=== PATIENT | male | born 1980 | race African-American/Black ===

== ENCOUNTER 2017-08-21 22:08 | Inpatient (IN) | payer MEDICAID ==
[~2017-08-21] VITALS: Ht 170.2 cm; Wt 72.6 kg
[2017-08-21 22:20] VITALS: BP 152/102
--- NOTE | 2017-08-21 22:22 | Emergency Room Report ---
History of Present Illness General Chief Complaint: Gastrointestinal Bleed Source: Patient, EMS Present Illness HPI 40YOM BIBEMS with abd pain, vomiting blood yesterday Recent ETOH binge EMS states non-compliant, not providing a lot of history Denies previous abd surgery, diarrhea Generalized abd pain HPI otherwise limited Allergies: Coded Allergies: No Known Allergies (Unverified , 08/21/17) Patient History Past Medical History: none Past Surgical History: none Pertinent Family History: none Social History: Reports: alcohol use Immunizations: UTD Reviewed Nursing Documentation: PMH: Agreed, PSxH: Agreed Nursing Documentation-PMH Past Medical History: No Stated History Review of Systems All Other Systems: negative except mentioned in HPI Physical Exam Vital Signs Date Time Temp Pulse Resp B/P (MAP) Pulse Ox O2 Delivery O2 Flow Rate FiO2 08/21/17 22:04 98.3 86 18 159/111 98 Room Air 98.2 Sp02 EP Interpretation: reviewed, normal General Appearance: normal inspection, well appearing, no apparent distress, alert, GCS 15, non-toxic, other - dried blood around mouth; +AOB Head: normocephalic, atraumatic Eyes: bilateral eye PERRL, bilateral eye EOMI ENT: normal ENT inspection, hearing grossly normal, normal pharynx, no angioedema, normal voice, TMs + canals normal, uvula midline, moist mucus membranes Neck: normal inspection, full range of motion, supple, thyroid normal, no meningismus, no bony tend Respiratory: normal inspection, lungs clear, normal breath sounds, no rhonchi, no respiratory distress, no retraction, no accessory muscle use, no wheezing, speaking full sentences Cardiovascular #1: regular rate, rhythm, no edema, no JVD, normal capillary refill Gastrointestinal: normal inspection, normal bowel sounds, non tender, soft, no mass, no peritonitis, non-distended, no guarding, no hernia, no pulsatile mass Genitourinary: no CVA tenderness Musculoskeletal: normal inspection, back normal, normal range of motion, no calf tenderness, pelvis stable, Sarah's Sign negative Neurologic: normal inspection, alert, oriented x3, responsive, 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, motor strength/tone normal, cerebellar normal, normal gait, speech normal Psychiatric: normal inspection, judgement/insight normal, mood/affect normal, no suicidal/homicidal ideation, no delusions Skin: normal inspection, normal color, no rash Lymphatic: normal inspection, no adenopathy Medical Decision Making Diagnostic Impression: Primary Impression: Abdominal pain Qualified Codes: R10.84 - Generalized abdominal pain Additional Impressions: Hematemesis Qualified Codes: K92.0 - Hematemesis ETOH abuse ER Course 37YOM with stomach pain, likely gastritis from ETOH abuse Alleged hematemesis No active hematemesis here VSS, afebrile H&H stable INR normal No other significant metabolic abnormalities Was given protonix in ED Will likely need endoscopy Panel admit Dr Bates for Dr Bennett tele bed, 1254am EKG Diagnostic Results Rate: normal Rhythm: NSR ST Segments: no acute changes ASA given to the pt in ED: No Rhythm Strip Diag. Results EP Interpretation: yes Rate: 75 Rhythm: NSR, no PVC's, no ectopy Last Vital Signs Date Time Temp Pulse Resp B/P (MAP) Pulse Ox O2 Delivery O2 Flow Rate FiO2 08/21/17 22:04 98.3 86 18 159/111 98 Room Air 98.2 Status: improved Disposition: ADMITTED INPATIENT Condition: Serious BRITTANI JACKSON M.D. Aug 21, 2017 22:22
[2017-08-21] MEDS ORDERED: Pantoprazole Inj IVP ONE (22:30)
[2017-08-21 23:20] VITALS: BP 145/90
[2017-08-21 23:29] LABS: BASOPHILS % (AUTO) 1.8 % (0.0-2.0); EOSINOPHILS % (AUTO) 0.4 % (0.0-3.0); HEMATOCRIT 35.5 % (42.0-52.0); HEMOGLOBIN 11.2 G/DL (14.2-18.0); LYMPHOCYTES % (AUTO) 47.5 % (20.0-45.0); MEAN CORPUSCULAR VOLUME 77 FL (80-99); MONOCYTES % (AUTO) 10.2 % (1.0-10.0); NEUTROPHILS % (AUTO) 40.1 % (45.0-75.0); PLATELET COUNT 180 K/UL (150-450); RED BLOOD COUNT 4.61 M/UL (4.70-6.10); WHITE BLOOD COUNT 4.9 K/UL (4.8-10.8)
[2017-08-21 23:47] LABS: ANION GAP 13 mmol/L (5-15); BLOOD UREA NITROGEN 4 mg/dL (7-18); CALCIUM 8.7 MG/DL (8.5-10.1); CARBON DIOXIDE 26 MMOL/L (21-32); CHLORIDE 93 MMOL/L (98-107); CREATININE 0.6 MG/DL (0.55-1.30); POTASSIUM 3.4 MMOL/L (3.5-5.1); SODIUM 132 MMOL/L (136-145)
[2017-08-21 23:51] LABS: ALANINE AMINOTRANSFERASE 48 U/L (12-78); ALBUMIN 3.6 G/DL (3.4-5.0); ALBUMIN/GLOBULIN RATIO 0.8 (1.0-2.7); ALKALINE PHOSPHATASE 124 U/L (46-116); ASPARTATE AMINO TRANSFERASE 95 U/L (15-37); BILIRUBIN,TOTAL 0.6 MG/DL (0.2-1.0)
[2017-08-22] VITALS (13 sets, daily range): BP systolic 134–153; BP diastolic 68–90
[2017-08-22 02:59] LABS: APPEARANCE,URINE CLEAR; BILIRUBIN, URINE NEGATIVE (NEGATIVE); COLOR,URINE PALE YELLOW; GLUCOSE, URINE (UA) NEGATIVE (NEGATIVE); KETONES,URINE NEGATIVE (NEGATIVE); LEUKOCYTE ESTERASE ,URINE NEGATIVE (NEGATIVE); NITRITE,URINE NEGATIVE (NEGATIVE); PH,URINE 6.5 (4.5-8.0); PROTEIN,URINE NEGATIVE (NEGATIVE); UROBILINOGEN,URINE NORMAL MG/DL (0.0-1.0)
[2017-08-22] MEDS ORDERED: Pantoprazole 80 MG in NS 250 ML IV SCH (05:15)
[2017-08-22] MEDS ORDERED: Miralax 17gm pkt ORAL PRN (05:15)
[2017-08-22] MEDS ORDERED: Acetaminophen 650 MG SUPP RECTAL PRN ×2 (05:15)
[2017-08-22] MEDS ORDERED: Zolpidem 5mg tab ORAL PRN (05:15)
[2017-08-22] MEDS ORDERED: LORazepam 1mg tab ORAL PRN (05:15)
[2017-08-22] MEDS ORDERED: Pantoprazole Inj ONE (06:16)
[2017-08-22] MEDS ORDERED: Pantoprazole Inj IVP SCH (09:00)
--- NOTE | 2017-08-22 09:52 | GI Initial Consult Note ---
History of Present Illness General Date patient seen: Aug 22, 2017 Time patient seen: 09:48 Reason for Hospitalization: Gastrointestinal Bleed Referring physician: RAHAT Reason for Consultation: UGIB Present Illness HPI 37YOM BIBEMS with abd pain, vomiting blood yesterday Recent ETOH binge EMS states non-compliant, not providing a lot of history Denies previous abd surgery, diarrhea Generalized abd pain HPI otherwise limited GI consulted for UGIB. Pt seen on tele, awake A&Ox4 NAD with no active s/sx of N/V/D. Per patient report, he has history of ETOH abuse approximately 3 bottles of wine daily. In addition, is a tobacco user with occasional drug use. Stated his abuse is due to stress. Had similar episode last year with endoscopy, but cannot recall the findings. Presents today with hematemesis and macrocytic hyperchromic anemia. No known history of colonoscopy. Home Meds Unable to Obtain Active Prescriptions or Reported Meds Med list reviewed/reconciled: Yes Allergies: Coded Allergies: No Known Allergies (Unverified , 08/21/17) Patient History History Provided By: Patient, Medical Record PMH Narrative Past Medical History: none Past Surgical History: none Pertinent Family History: none Social History: Reports: alcohol use Immunizations: UTD Reviewed Nursing Documentation: PMH: Agreed, PSxH: Agreed Nursing Documentation-PMH Past Medical History: No Stated History Social History: Reports: smoking, alcohol use - etoh abuse, drug use Review of Systems All Other Systems: negative except mentioned in HPI Physical Exam Vital Signs Date Time Temp Pulse Resp B/P (MAP) Pulse Ox O2 Delivery O2 Flow Rate FiO2 08/21/17 22:04 98.3 86 18 159/111 98 Room Air 98.2 Sp02 EP Interpretation: reviewed, normal Labs Laboratory Tests Test 08/21/17 22:45 08/22/17 01:20 White Blood Count 4.9 K/UL (4.8-10.8) Red Blood Count 4.61 M/UL (4.70-6.10) L Hemoglobin 11.2 G/DL (14.2-18.0) L Hematocrit 35.5 % (42.0-52.0) L Mean Corpuscular Volume 77 FL (80-99) L Mean Corpuscular Hemoglobin 24.3 PG (27.0-31.0) L Mean Corpuscular Hemoglobin Concent 31.6 G/DL (32.0-36.0) L Red Cell Distribution Width 18.0 % (11.6-14.8) H Platelet Count 180 K/UL (150-450) Mean Platelet Volume 7.5 FL (6.5-10.1) Neutrophils (%) (Auto) 40.1 % (45.0-75.0) L Lymphocytes (%) (Auto) 47.5 % (20.0-45.0) H Monocytes (%) (Auto) 10.2 % (1.0-10.0) H Eosinophils (%) (Auto) 0.4 % (0.0-3.0) Basophils (%) (Auto) 1.8 % (0.0-2.0) Prothrombin Time 10.3 SEC (9.30-11.50) Prothromb Time International Ratio 1.0 (0.9-1.1) Sodium Level 132 MMOL/L (136-145) L Potassium Level 3.4 MMOL/L (3.5-5.1) L Chloride Level 93 MMOL/L (98-107) L Carbon Dioxide Level 26 MMOL/L (21-32) Anion Gap 13 mmol/L (5-15) Blood Urea Nitrogen 4 mg/dL (7-18) L Creatinine 0.6 MG/DL (0.55-1.30) Estimat Glomerular Filtration Rate > 60 mL/min (>60) Glucose Level 108 MG/DL (74-106) H Calcium Level 8.7 MG/DL (8.5-10.1) Total Bilirubin 0.6 MG/DL (0.2-1.0) Aspartate Amino Transf (AST/SGOT) 95 U/L (15-37) H Alanine Aminotransferase (ALT/SGPT) 48 U/L (12-78) Alkaline Phosphatase 124 U/L (46-116) H Total Protein 7.9 G/DL (6.4-8.2) Albumin 3.6 G/DL (3.4-5.0) Globulin 4.3 g/dL Albumin/Globulin Ratio 0.8 (1.0-2.7) L Lipase 132 U/L (73-393) Urine Color Pale yellow Urine Appearance Clear Urine pH 6.5 (4.5-8.0) Urine Specific [place] 1.005 (1.005-1.035) Urine Protein Negative (NEGATIVE) Urine Glucose (UA) Negative (NEGATIVE) Urine Ketones Negative (NEGATIVE) Urine Occult Blood Negative (NEGATIVE) Urine Nitrite Negative (NEGATIVE) Urine Bilirubin Negative (NEGATIVE) Urine Urobilinogen Normal MG/DL (0.0-1.0) Urine Leukocyte Esterase Negative (NEGATIVE) General Appearance: well appearing, no apparent distress, alert Head: normocephalic EENT: PERRL/EOMI, normal ENT inspection Neck: supple Respiratory: normal breath sounds, no respiratory distress Cardiovascular: normal rate Gastrointestinal: normal inspection, non tender, soft, normal bowel sounds, non -distended Rectal: deferred Genitourinary: deferred Musculoskeletal: normal inspection, back normal Neurologic: normal inspection, alert, oriented x3, responsive Psychiatric: normal inspection, judgement/insight normal, memory normal Skin: normal inspection, normal color, no rash, warm/dry, palpation normal, well hydrated Lymphatic: normal inspection, no adenopathy Current Medications Current Medications Medications (Trade) Dose Ordered Sig/Edgar Route PRN Reason Start Time Stop Time Status Last Admin Dose Admin Acetaminophen (Tylenol) 650 mg Q4H PRN ORAL Mild Pain (Pain Scale 1-3) 08/22/17 05:15 09/21/17 05:14 Acetaminophen (Tylenol) 650 mg Q4H PRN ORAL fever 08/22/17 05:15 09/21/17 05:14 Acetaminophen (Tylenol) 650 mg Q4H PRN RECTAL Mild Pain (Pain Scale 1-3) 08/22/17 05:15 09/21/17 05:14 Acetaminophen (Tylenol) 650 mg Q4H PRN RECTAL fever 08/22/17 05:15 09/21/17 05:14 Bisacodyl (Dulcolax) 10 mg DAILYPRN PRN RECTAL Constipation 08/22/17 05:15 09/21/17 05:14 Dextrose (Dextrose 50%) STAT PRN IV Hypoglycemia 08/22/17 05:15 09/21/17 05:14 Diphenhydramine HCl (Benadryl) 25 mg Q6H PRN ORAL Itching/Pruritis 08/22/17 05:15 09/21/17 05:14 Folic Acid 1 mg/ Magnesium Sulfate 2000 mg/ Multivitamins 10 ml/Sodium Chloride 1,014.2 ml @ 125 mls/ hr Q24H IV 08/22/17 10:00 09/21/17 09:59 Lorazepam (Ativan) 1 mg Q4H PRN ORAL For Anxiety 08/22/17 05:15 08/29/17 05:14 Magnesium Sulfate 2000 mg/Folic Acid 1 mg/Sodium Chloride 1,004.2 ml @ 125 mls/ hr Q24HRS IV 08/22/17 18:00 09/21/17 17:59 Ondansetron HCl (Zofran) 4 mg Q6H PRN IVP Nausea & Vomiting 08/22/17 05:15 09/21/17 05:14 08/22/17 07:48 Pantoprazole (Protonix) 40 mg EVERY 12 HOURS IVP 08/22/17 09:00 09/21/17 08:59 Polyethylene Glycol (Miralax) 17 gm DAILYPRN PRN ORAL Constipation 08/22/17 05:15 09/21/17 05:14 Thiamine HCl 100 mg/Sodium Chloride 56 ml @ 100 mls/hr DAILY IVPB 08/22/17 10:00 09/21/17 09:59 Zolpidem Tartrate (Ambien) 5 mg DAILYPRN PRN ORAL Insomnia 08/22/17 05:15 08/29/17 05:14 GI: Plan Problems: (1) Abdominal pain (2) ETOH abuse (3) Upper GI bleed (4) Hematemesis Plan EGD scheduled for today. - maintain NPO + IVFs - ppi gtt anemia work up monitor H&H, prn transfusions bowel regime ppi fu labs, B12/folate Discussed with Dr. Cross. Thank you for this patient referral, we will follow. Eliz Rose N.P. Aug 22, 2017 09:52
--- NOTE | 2017-08-22 09:52 | Pre-Procedure Note/Attestation ---
Pre-Procedure Note/Attestation Complete Prior to Procedure Planned Procedure: not applicable Procedure Narrative: egd Indications for Procedure Pre-Operative Diagnosis: gib Attestation I attest that I discussed the nature of the procedure; its benefits; risks and complications; and alternatives (and the risks and benefits of such alternatives ), prior to the procedure, with the patient (or the patient's legal underwriting service representative). I attest that, if there was a reasonable possibility of needing a blood transfusion, the patient (or the patient's legal underwriting service representative) was given the [facility] standardized written summary, pursuant to the Seng Radha Blood Safety Act ([place] Health and Safety Code # 1645, as amended). I attest that I re-evaluated the patient just prior to the surgery and that there has been no change in the patient's H&P, except as documented below: BETH CRUZ Aug 22, 2017 09:52
[2017-08-22] MEDS: Thiamine HCl 100 MG in NS 55 ML IVPB SCH (09:58)
[2017-08-22] MEDS ORDERED: Folic Acid 1 MG, Magnesium Sulfate 2,000 MG, Multivitamin - 12 Injection 10 ML in NS w/... IV SCH (10:00)
--- NOTE | 2017-08-22 10:24 | History and Physical ---
History of Present Illness General Date patient seen: Aug 22, 2017 Time patient seen: 10:24 Reason for Hospitalization: acute upper GI bleed Present Illness HPI 37y/o male with pmh of alcohol abuse who presents with abd pain and hematemesis. Pt with recent alcohol binge episode. Pt non-compliant, poor historian. C/o generalized abd pain, 9/10. C/o nausea with blood emesis. Denies f/c, chest pain, SOB, d/c. Pt states he drinks abt 3 bottles of wine. Had similar episode last year with endoscopy, but cannot recall the findings. In ED, pt given PPI. No active bleeding noted. Allergies: Coded Allergies: No Known Allergies (Unverified , 08/21/17) Medication History Scheduled Folic Acid* (Folic Acid*), 1 MG ORAL DAILY Multivitamin With Minerals (Multivitamins With Minerals*), 1 TAB ORAL DAILY Pantoprazole* (Protonix*), 40 MG ORAL DAILY Thiamine Hcl (Vitamin B1*), 100 MG ORAL DAILY Patient History History Provided By: Patient, Medical Record, EMS Healthcare decision maker Resuscitation status Advanced Directive on File Past Medical/Surgical History Past Medical/Surgical History: (1) Alcohol abuse Family History Family History: Patient reports no known family medical history. Social History Social History: (1) Tobacco abuse (2) Alcohol abuse Review of Systems Constitutional: Reports: weakness Eye: Reports: acuity changes Respiratory: Reports: no symptoms Cardiovascular: Reports: no symptoms Gastrointestinal: Reports: abdominal pain, nausea, vomiting, hematemesis Genitourinary: Reports: no symptoms Musculoskeletal: Reports: no symptoms Skin: Reports: no symptoms Psychiatric: Reports: no symptoms Neurological: Reports: no symptoms Endocrine: Reports: no symptoms Hematologic/Lymphatic: Reports: no symptoms Physical Exam Physical Exam Narrative General: alert, cooperative, no distress, appears stated age Head: normocephalic, without obvious abnormality, atraumatic Eyes: conjunctivae/corneas clear. PERRL, EOM's intact Throat: lips, mucosa, and tongue normal. MMM Neck: supple, symmetrical, trachea midline, and no JVD Lungs: clear to auscultation bilaterally Heart: regular rate and rhythm, S1, S2 normal, no murmur, click, rub or gallop Abdomen: soft, +TTP diffusely don upper abd, non-distended, bowel sounds normal Extremities: extremities normal, atraumatic, no cyanosis or edema Pulses: 2+ and symmetric Skin: skin color, texture, turgor normal; no rashes or lesions Neurologic: grossly normal, no focal deficits Last 24 Hour Vital Signs Date Time Temp Pulse Resp B/P (MAP) Pulse Ox O2 Delivery O2 Flow Rate FiO2 08/22/17 08:00 116 08/22/17 08:00 97.0 116 16 136/70 99 Room Air 08/22/17 04:00 116 08/22/17 04:00 97.8 100 16 141/72 95 Room Air 08/22/17 01:30 98.0 97 14 142/85 98 Room Air 98.0 08/22/17 00:30 97.9 96 13 148/88 99 Room Air 97.9 08/21/17 23:20 98.1 102 14 145/90 98 Room Air 98.1 08/21/17 22:20 98.4 97 18 152/102 98 Room Air 98.4 08/21/17 22:04 98.3 86 18 159/111 98 Room Air 98.2 Intake and Output 08/21/17 08/22/17 19:00 07:00 Intake Total 1000 ml Balance 1000 ml Intake IV Total 1000 ml # Voids 2 Laboratory Tests Test 08/21/17 22:45 08/22/17 01:20 White Blood Count 4.9 K/UL (4.8-10.8) Red Blood Count 4.61 M/UL (4.70-6.10) L Hemoglobin 11.2 G/DL (14.2-18.0) L Hematocrit 35.5 % (42.0-52.0) L Mean Corpuscular Volume 77 FL (80-99) L Mean Corpuscular Hemoglobin 24.3 PG (27.0-31.0) L Mean Corpuscular Hemoglobin Concent 31.6 G/DL (32.0-36.0) L Red Cell Distribution Width 18.0 % (11.6-14.8) H Platelet Count 180 K/UL (150-450) Mean Platelet Volume 7.5 FL (6.5-10.1) Neutrophils (%) (Auto) 40.1 % (45.0-75.0) L Lymphocytes (%) (Auto) 47.5 % (20.0-45.0) H Monocytes (%) (Auto) 10.2 % (1.0-10.0) H Eosinophils (%) (Auto) 0.4 % (0.0-3.0) Basophils (%) (Auto) 1.8 % (0.0-2.0) Prothrombin Time 10.3 SEC (9.30-11.50) Prothromb Time International Ratio 1.0 (0.9-1.1) Sodium Level 132 MMOL/L (136-145) L Potassium Level 3.4 MMOL/L (3.5-5.1) L Chloride Level 93 MMOL/L (98-107) L Carbon Dioxide Level 26 MMOL/L (21-32) Anion Gap 13 mmol/L (5-15) Blood Urea Nitrogen 4 mg/dL (7-18) L Creatinine 0.6 MG/DL (0.55-1.30) Estimat Glomerular Filtration Rate > 60 mL/min (>60) Glucose Level 108 MG/DL (74-106) H Calcium Level 8.7 MG/DL (8.5-10.1) Total Bilirubin 0.6 MG/DL (0.2-1.0) Aspartate Amino Transf (AST/SGOT) 95 U/L (15-37) H Alanine Aminotransferase (ALT/SGPT) 48 U/L (12-78) Alkaline Phosphatase 124 U/L (46-116) H Total Protein 7.9 G/DL (6.4-8.2) Albumin 3.6 G/DL (3.4-5.0) Globulin 4.3 g/dL Albumin/Globulin Ratio 0.8 (1.0-2.7) L Lipase 132 U/L (73-393) Urine Color Pale yellow Urine Appearance Clear Urine pH 6.5 (4.5-8.0) Urine Specific [place] 1.005 (1.005-1.035) Urine Protein Negative (NEGATIVE) Urine Glucose (UA) Negative (NEGATIVE) Urine Ketones Negative (NEGATIVE) Urine Occult Blood Negative (NEGATIVE) Urine Nitrite Negative (NEGATIVE) Urine Bilirubin Negative (NEGATIVE) Urine Urobilinogen Normal MG/DL (0.0-1.0) Urine Leukocyte Esterase Negative (NEGATIVE) Height (Feet): 5 Height (Inches): 7.00 Weight (Pounds): 160 Medications Current Medications Medications (Trade) Dose Ordered Sig/Edgar Route PRN Reason Start Time Stop Time Status Last Admin Dose Admin Acetaminophen (Tylenol) 650 mg Q4H PRN ORAL Mild Pain (Pain Scale 1-3) 08/22/17 05:15 09/21/17 05:14 Acetaminophen (Tylenol) 650 mg Q4H PRN ORAL fever 08/22/17 05:15 09/21/17 05:14 Acetaminophen (Tylenol) 650 mg Q4H PRN RECTAL Mild Pain (Pain Scale 1-3) 08/22/17 05:15 09/21/17 05:14 Acetaminophen (Tylenol) 650 mg Q4H PRN RECTAL fever 08/22/17 05:15 09/21/17 05:14 Bisacodyl (Dulcolax) 10 mg DAILYPRN PRN RECTAL Constipation 08/22/17 05:15 09/21/17 05:14 Dextrose (Dextrose 50%) STAT PRN IV Hypoglycemia 08/22/17 05:15 09/21/17 05:14 Diphenhydramine HCl (Benadryl) 25 mg Q6H PRN ORAL Itching/Pruritis 08/22/17 05:15 09/21/17 05:14 Folic Acid 1 mg/ Magnesium Sulfate 2000 mg/ Multivitamins 10 ml/Sodium Chloride 1,014.2 ml @ 125 mls/ hr Q24H IV 08/22/17 10:00 09/21/17 09:59 08/22/17 09:57 Lorazepam (Ativan) 1 mg Q4H PRN ORAL For Anxiety 08/22/17 05:15 08/29/17 05:14 Magnesium Sulfate 2000 mg/Folic Acid 1 mg/Sodium Chloride 1,004.2 ml @ 125 mls/ hr Q24HRS IV 08/22/17 18:00 09/21/17 17:59 Ondansetron HCl (Zofran) 4 mg Q6H PRN IVP Nausea & Vomiting 08/22/17 05:15 09/21/17 05:14 08/22/17 07:48 Pantoprazole (Protonix) 40 mg EVERY 12 HOURS IVP 08/22/17 09:00 09/21/17 08:59 08/22/17 09:57 Polyethylene Glycol (Miralax) 17 gm DAILYPRN PRN ORAL Constipation 08/22/17 05:15 09/21/17 05:14 Thiamine HCl 100 mg/Sodium Chloride 56 ml @ 100 mls/hr DAILY IVPB 08/22/17 10:00 09/21/17 09:59 08/22/17 09:58 Zolpidem Tartrate (Ambien) 5 mg DAILYPRN PRN ORAL Insomnia 08/22/17 05:15 08/29/17 05:14 Assessment/Plan Problem List: (1) Acute upper GI bleed ICD Codes: K92.2 - Gastrointestinal hemorrhage, unspecified SNOMED: 32525785 (2) Acute blood loss anemia ICD Codes: D62 - Acute posthemorrhagic anemia SNOMED: 617013370 (3) Alcohol abuse ICD Codes: F10.10 - Alcohol abuse, uncomplicated SNOMED: 36307521 (4) Hyponatremia ICD Codes: E87.1 - Hypo-osmolality and hyponatremia SNOMED: 89746440 (5) Hypokalemia ICD Codes: E87.6 - Hypokalemia SNOMED: 97519305 Status: stable Assessment/Plan Admit inpt GI consulted NPO IVFs Empiric PPI gtt Trend CBC, transfuse for hgb<7 or active bleeding Pain control, nausea control Supportive care DVT ppx w/ SCDs FULL CODE D/w pt, RN, GI regarding mgmt and dispo Jana Dickerson M.D. Aug 22, 2017 10:24
[2017-08-22 10:49] LABS: BASOPHILS % (AUTO) 1.3 % (0.0-2.0); EOSINOPHILS % (AUTO) 0.3 % (0.0-3.0); HEMATOCRIT 29.5 % (42.0-52.0); HEMOGLOBIN 9.2 G/DL (14.2-18.0); LYMPHOCYTES % (AUTO) 33.1 % (20.0-45.0); MEAN CORPUSCULAR VOLUME 78 FL (80-99); MONOCYTES % (AUTO) 6.1 % (1.0-10.0); NEUTROPHILS % (AUTO) 59.2 % (45.0-75.0); PLATELET COUNT 148 K/UL (150-450); RED CELL DISTRIBUTION WIDTH 18.3 % (11.6-14.8); WHITE BLOOD COUNT 3.6 K/UL (4.8-10.8)
[2017-08-22 11:01] LABS: ALANINE AMINOTRANSFERASE 35 U/L (12-78); ALBUMIN 3.1 G/DL (3.4-5.0); ALBUMIN/GLOBULIN RATIO 0.9 (1.0-2.7); ALKALINE PHOSPHATASE 90 U/L (46-116); ANION GAP 9 mmol/L (5-15); ASPARTATE AMINO TRANSFERASE 80 U/L (15-37); BILIRUBIN,TOTAL 0.6 MG/DL (0.2-1.0); BLOOD UREA NITROGEN 5 mg/dL (7-18); CALCIUM 7.9 MG/DL (8.5-10.1); CARBON DIOXIDE 28 MMOL/L (21-32); CHLORIDE 100 MMOL/L (98-107); CREATININE 0.6 MG/DL (0.55-1.30); POTASSIUM 3.7 MMOL/L (3.5-5.1); SODIUM 137 MMOL/L (136-145)
[2017-08-22] MEDS ORDERED: Morphine Sulfate 2mg/ml Inj IVP PRN (11:30)
[2017-08-22] MEDS: Morphine Sulfate 4mg/ml Inj IVP PRN ×3 (11:44→21:18)
[2017-08-22] MEDS ORDERED: Propofol 200mg/20ml IV ONE (13:00)
[2017-08-22] MEDS ORDERED: Lidocaine 1% MPF 10mg/ml 5ml ONE (13:00)
[2017-08-22] MEDS ORDERED: NS 275ml ONE (13:00)
[2017-08-22] MEDS ORDERED: NS 500ML IV ONE (13:15)
--- NOTE | 2017-08-22 13:39 | Immediate Post-Op Evaluation ---
Immediate Post-Op Evalulation Immediate Post-Op Evalulation Procedure: egd Date of Evaluation: Aug 22, 2017 Time of Evaluation: 13:44 IV Fluids: 250ml 0.9ns Blood Products: none Estimated Blood Loss: negligible Blood Pressure Systolic: 140 Blood Pressure Diastolic: 88 Pulse Rate: 87 Respiratory Rate: 18 O2 Sat by Pulse Oximetry: 100 Temperature (Fahrenheit): 98.2 Pain Score (1-10): 0 Nausea: No Vomiting: No Complications none Patient Status: awake, reacts, patent Hydration Status: adequate Drug: AUGUSTO Victoria Aug 22, 2017 13:39
--- NOTE | 2017-08-22 13:39 | Anethesia Preoperative Eval ---
Anesthesia Pre-op PMH/ROS General Date of Evaluation: Aug 22, 2017 Time of Evaluation: 13:09 Anesthesiologist: ritika ASA Score: ASA 3 Mallampati Score Class I : Soft palate, uvula, fauces, pillars visible Class II: Soft palate, uvula, fauces visible Class III: Soft palate, base of uvula visible Class IV: Only hard plate visible Mallampati Classification: Class II Surgeon: taylor Diagnosis: ugi bleed Surgical Procedure: egd Anesthesia History: none Social History: smoking, alcohol use Family History: no anesthesia problems Allergies: Coded Allergies: No Known Allergies (Unverified , 08/21/17) Medications: see eMAR Past Medical History Gastrointestinal/Genitourinary: Reports: other - gi bleed Anesthesia Pre-op Phys. Exam Physician Exam Last Vital Signs Date Time Temp Pulse Resp B/P (MAP) Pulse Ox O2 Delivery O2 Flow Rate FiO2 08/22/17 12:00 98.2 103 18 140/68 97 Room Air Constitutional: NAD Neurologic: CN 2-12 intact Cardiovascular: RRR Respiratory: CTA Gastrointestinal: S/NT/ND Airway Exam Mallampati Score: Class II MO: full Neck: supple TMD: 2fb ROM: limited Anesthesia Pre-op A/P Labs Hematology Test 08/21/17 22:45 08/22/17 09:55 White Blood Count 4.9 K/UL (4.8-10.8) 3.6 K/UL (4.8-10.8) L Red Blood Count 4.61 M/UL (4.70-6.10) L 3.80 M/UL (4.70-6.10) L Hemoglobin 11.2 G/DL (14.2-18.0) L 9.2 G/DL (14.2-18.0) L Hematocrit 35.5 % (42.0-52.0) L 29.5 % (42.0-52.0) L Mean Corpuscular Volume 77 FL (80-99) L 78 FL (80-99) L Mean Corpuscular Hemoglobin 24.3 PG (27.0-31.0) L 24.2 PG (27.0-31.0) L Mean Corpuscular Hemoglobin Concent 31.6 G/DL (32.0-36.0) L 31.2 G/DL (32.0-36.0) L Red Cell Distribution Width 18.0 % (11.6-14.8) H 18.3 % (11.6-14.8) H Platelet Count 180 K/UL (150-450) 148 K/UL (150-450) L Mean Platelet Volume 7.5 FL (6.5-10.1) 7.6 FL (6.5-10.1) Neutrophils (%) (Auto) 40.1 % (45.0-75.0) L 59.2 % (45.0-75.0) Lymphocytes (%) (Auto) 47.5 % (20.0-45.0) H 33.1 % (20.0-45.0) Monocytes (%) (Auto) 10.2 % (1.0-10.0) H 6.1 % (1.0-10.0) Eosinophils (%) (Auto) 0.4 % (0.0-3.0) 0.3 % (0.0-3.0) Basophils (%) (Auto) 1.8 % (0.0-2.0) 1.3 % (0.0-2.0) Coagulation Test 08/21/17 22:45 Prothrombin Time 10.3 SEC (9.30-11.50) Prothromb Time International Ratio 1.0 (0.9-1.1) Chemistry Test 08/21/17 22:45 08/22/17 09:55 Sodium Level 132 MMOL/L (136-145) L 137 MMOL/L (136-145) Potassium Level 3.4 MMOL/L (3.5-5.1) L 3.7 MMOL/L (3.5-5.1) Chloride Level 93 MMOL/L (98-107) L 100 MMOL/L (98-107) Carbon Dioxide Level 26 MMOL/L (21-32) 28 MMOL/L (21-32) Anion Gap 13 mmol/L (5-15) 9 mmol/L (5-15) Blood Urea Nitrogen 4 mg/dL (7-18) L 5 mg/dL (7-18) L Creatinine 0.6 MG/DL (0.55-1.30) 0.6 MG/DL (0.55-1.30) Estimat Glomerular Filtration Rate > 60 mL/min (>60) > 60 mL/min (>60) Glucose Level 108 MG/DL (74-106) H 98 MG/DL (74-106) Calcium Level 8.7 MG/DL (8.5-10.1) 7.9 MG/DL (8.5-10.1) L Total Bilirubin 0.6 MG/DL (0.2-1.0) 0.6 MG/DL (0.2-1.0) Aspartate Amino Transf (AST/SGOT) 95 U/L (15-37) H 80 U/L (15-37) H Alanine Aminotransferase (ALT/SGPT) 48 U/L (12-78) 35 U/L (12-78) Alkaline Phosphatase 124 U/L (46-116) H 90 U/L (46-116) Total Protein 7.9 G/DL (6.4-8.2) 6.6 G/DL (6.4-8.2) Albumin 3.6 G/DL (3.4-5.0) 3.1 G/DL (3.4-5.0) L Globulin 4.3 g/dL 3.5 g/dL Albumin/Globulin Ratio 0.8 (1.0-2.7) L 0.9 (1.0-2.7) L Lipase 132 U/L (73-393) Magnesium Level 1.5 MG/DL (1.8-2.4) L Vitamin B12 Level 459 PG/ML (193-986) Folate 2.2 NG/ML (8.6-58.9) L Risk Assessment & Plan Assessment: asa3 Plan: mac Status Change Before Surgery: No Pre-Antibiotics Drug: AUGUSTO Victoria Aug 22, 2017 13:39
--- NOTE | 2017-08-22 13:39 | 48 Hour Post Anesthesia Eval ---
Post Anesthesia Evaluation Procedure: egd Date of Evaluation: Aug 22, 2017 Time of Evaluation: 13:46 Blood Pressure Systolic: 150 0: 89 Pulse Rate: 88 Respiratory Rate: 18 Temperature (Fahrenheit): 98.2 O2 Sat by Pulse Oximetry: 100 Airway: patent Nausea: No Vomiting: No Pain Intensity: 0 Hydration Status: adequate Cardiopulmonary Status: stable Mental Status/LOC: patient returned to baseline Post-Anesthesia Complications: none Follow-up care needed: N/A AUGUSTO NEVES Aug 22, 2017 13:39
[2017-08-22] MEDS ORDERED: DiphenhydrAMINE 50mg/ml Inj IVP PRN (13:45)
[2017-08-22] MEDS ORDERED: Atropine Inj 1mg/10ml Syr IV PRN (13:45)
[2017-08-22] MEDS ORDERED: Midazolam 2mg/2ml Inj IVP PRN (13:45)
[2017-08-22] MEDS: fentaNYL 100 mcg/2 mL IV PRN ×6 (13:57→18:34)
--- NOTE | 2017-08-22 14:04 | Endoscopy Procedure Note ---
Endoscopy Procedure Note General Indication for Procedure: gib Procedures Performed: EGD Operative Findings/Diagnosis: partial antrectomy, bile reflux Specimen: yes Pt Tolerated Procedure Well: Yes Estimated Blood Loss: none Anesthesia Anesthesiologist: beth Anesthesia: MAC Inserted Devices Implant(s) used?: No GI Core Measures 50 yrs or older w/o bx or poly: Not Applicable 10yrs. F/U not recommended: Not Applicable BETH CRUZ Aug 22, 2017 14:04
[2017-08-22] MEDS: Pantoprazole 80 MG in NS 250 ML IV SCH ×2 (16:40→23:00)
[2017-08-22] MEDS ORDERED: FOLIC ACID IV SCH (18:00)
[2017-08-22] MEDS ORDERED: MAGNESIUM SULFATE IV SCH (18:00)
[2017-08-22] MEDS ORDERED: KCL IV SCH (18:00)
[2017-08-22] MEDS ORDERED: NS IV SCH (18:00)
--- NOTE | 2017-08-22 20:30 | Procedure Note ---
DATE OF PROCEDURE: 08/22/2017 SURGEON: Vivek Cross M.D. PROCEDURE: Upper endoscopy with biopsy. ANESTHESIA: Per Dr. Humphrey. INSTRUMENT: Olympus adult flexible upper endoscope. INDICATION: Upper gastrointestinal bleeding. The procedure, risks, benefits, and possible consequences, including hemorrhage, aspiration, perforation and infection, and alternative treatments, were explained to the patient/legal guardian by Dr. Vievk Cross and the patient/legal guardian understood and accepted these risks DESCRIPTION OF PROCEDURE: After informed consent was obtained and the patient was adequately sedated, Olympus upper endoscope was advanced from the mouth into the esophagus and subsequently into the stomach. The patient had evidence of partial antrectomy. We were able to pass the scope through the afferent loop of the small intestine. There is no active bleeding at this time. There was some bile in the stomach that is suggestive of bile reflux. There was some evidence of gastritis. Random biopsy from body of the stomach was obtained to rule out H. pylori infection. There is no evidence of any esophageal ulceration. No esophageal varices. No gastric varices. No anastomotic ulceration. The patient tolerated the procedure well without any complication. SUMMARY OF FINDINGS: 1. Gastritis and bile reflux. 2. History of partial antrectomy. RECOMMENDATIONS: 1. Resume diet. 2. Monitor labs. 3. Follow biopsy results. 4. Transfuse as needed. 5. Monitor for alcohol withdrawal. Vivek Cross M.D. DR: TERESITA JOB#: [id number] CC: ROBERTO
[2017-08-23] VITALS (7 sets, daily range): BP systolic 133–156; BP diastolic 84–95
[2017-08-23] MEDS: Morphine Sulfate 4mg/ml Inj IVP PRN ×4 (01:56→20:08)
[2017-08-23] MEDS: Pantoprazole 80 MG in NS 250 ML IV SCH (03:02)
--- NOTE | 2017-08-23 08:34 | Cardiology Report ---
APPROVED REPORT EKG Measurement Heart [id number] ME [id number] Normal sinus rhythm Prolonged QT Abnormal ECG
[2017-08-23 08:41] LABS: HEMATOCRIT 28.9 % (42.0-52.0); HEMOGLOBIN 9.4 G/DL (14.2-18.0); MEAN CORPUSCULAR VOLUME 77 FL (80-99); PLATELET COUNT 114 K/UL (150-450); RED BLOOD COUNT 3.74 M/UL (4.70-6.10); RED CELL DISTRIBUTION WIDTH 18.6 % (11.6-14.8); WHITE BLOOD COUNT 3.4 K/UL (4.8-10.8)
[2017-08-23 09:18] LABS: ALANINE AMINOTRANSFERASE 36 U/L (12-78); ALBUMIN/GLOBULIN RATIO 0.8 (1.0-2.7); ALKALINE PHOSPHATASE 82 U/L (46-116); ANION GAP 4 mmol/L (5-15); ASPARTATE AMINO TRANSFERASE 60 U/L (15-37); BLOOD UREA NITROGEN 1 mg/dL (7-18); CALCIUM 8.4 MG/DL (8.5-10.1); CARBON DIOXIDE 30 MMOL/L (21-32); CHLORIDE 101 MMOL/L (98-107); CREATININE 0.6 MG/DL (0.55-1.30); POTASSIUM 3.3 MMOL/L (3.5-5.1); SODIUM 135 MMOL/L (136-145)
[2017-08-23 09:21] LABS: ANION GAP 5 mmol/L (5-15); BLOOD UREA NITROGEN 1 mg/dL (7-18); CALCIUM 8.5 MG/DL (8.5-10.1); CARBON DIOXIDE 30 MMOL/L (21-32); CHLORIDE 101 MMOL/L (98-107); CREATININE 0.6 MG/DL (0.55-1.30); FERRITIN 72 NG/ML (8-388); POTASSIUM 3.4 MMOL/L (3.5-5.1); SODIUM 136 MMOL/L (136-145)
[2017-08-23 09:31] LABS: % IRON SATURATION 66 % (15-50); IRON 165 ug/dL (50-175); TOTAL IRON BINDING CAPACITY 249 ug/dL (250-450)
[2017-08-23] MEDS: Thiamine HCl 100 MG in NS 55 ML IVPB SCH (09:32)
--- NOTE | 2017-08-23 12:32 | GI Progress Note ---
Assessment/Plan Problems: (1) Upper GI bleed ICD Codes: K92.2 - Gastrointestinal hemorrhage, unspecified SNOMED: 10144670 (2) Abdominal pain ICD Codes: R10.9 - Unspecified abdominal pain SNOMED: 98039833 Qualifiers: Qualified Codes: R10.84 - Generalized abdominal pain (3) Hematemesis ICD Codes: K92.0 - Hematemesis SNOMED: 3284101 Qualifiers: Qualified Codes: K92.0 - Hematemesis (4) ETOH abuse ICD Codes: F10.10 - Alcohol abuse, uncomplicated SNOMED: 93910388 Status: stable Status Narrative Discussed with Dr. Cross. Assessment/Plan s/p EGD SUMMARY OF FINDINGS: 1. Gastritis and bile reflux. 2. History of partial antrectomy. RECOMMENDATIONS: Resume diet. Monitor labs. Follow biopsy results. Transfuse as needed. Monitor for alcohol withdrawal. ppi fu labs, B12/folate Subjective Subjective feels better abdominal pain still present Objective Last 24 Hour Vital Signs Date Time Temp Pulse Resp B/P (MAP) Pulse Ox O2 Delivery O2 Flow Rate FiO2 08/23/17 08:00 97.5 83 18 149/93 99 Room Air 08/23/17 04:00 80 08/23/17 04:00 98.2 80 20 144/95 100 Room Air 08/23/17 00:00 121 08/23/17 00:00 97.7 86 22 141/84 98 Room Air 08/22/17 20:00 97.7 83 20 134/75 100 Room Air 08/22/17 20:00 105 08/22/17 18:32 208.8 88 18 100 08/22/17 18:30 208.8 87 18 100 08/22/17 17:22 98.2 08/22/17 16:52 98.2 08/22/17 16:43 98.2 08/22/17 16:41 98.2 08/22/17 16:00 97.7 90 20 140/87 100 Room Air 08/22/17 16:00 98.2 08/22/17 16:00 115 08/22/17 14:12 98.2 93 20 141/90 100 Room Air 08/22/17 14:08 98.2 08/22/17 14:08 95 20 141/90 100 Room Air 08/22/17 13:57 97 20 137/80 100 Room Air 08/22/17 13:46 94 20 141/87 100 Room Air 08/22/17 13:37 90 20 153/90 100 Room Air 08/22/17 13:32 98.2 90 20 140/88 100 Nasal Cannula 3.0 Intake and Output 08/22/17 08/23/17 19:00 07:00 Intake Total 1156 ml 874 ml Output Total 800 ml 1450 ml Balance 356 ml -576 ml IV Total 1156 ml 874 ml Output Urine Total 800 ml 1450 ml # Voids 1 Laboratory Tests Test 08/23/17 07:04 08/23/17 08:10 Reticulocyte Count 1.1 % (0.0-2.0) Prothrombin Time 10.2 SEC (9.30-11.50) Prothromb Time International Ratio 1.0 (0.9-1.1) Activated Partial Thromboplast Time 26 SEC (23-33) Sodium Level 135 MMOL/L (136-145) L Potassium Level 3.3 MMOL/L (3.5-5.1) L Chloride Level 101 MMOL/L (98-107) Carbon Dioxide Level 30 MMOL/L (21-32) Anion Gap 4 mmol/L (5-15) L Blood Urea Nitrogen 1 mg/dL (7-18) L Creatinine 0.6 MG/DL (0.55-1.30) Estimat Glomerular Filtration Rate > 60 mL/min (>60) Glucose Level 134 MG/DL (74-106) H Calcium Level 8.4 MG/DL (8.5-10.1) L Magnesium Level 1.7 MG/DL (1.8-2.4) L Iron Level 165 ug/dL (50-175) Total Iron Binding Capacity 249 ug/dL (250-450) L Percent Iron Saturation 66 % (15-50) H Unsaturated Iron Binding 84 ug/dL (112-346) L Ferritin 72 NG/ML (8-388) Total Bilirubin 1.0 MG/DL (0.2-1.0) Aspartate Amino Transf (AST/SGOT) 60 U/L (15-37) H Alanine Aminotransferase (ALT/SGPT) 36 U/L (12-78) Alkaline Phosphatase 82 U/L (46-116) Total Protein 6.6 G/DL (6.4-8.2) Albumin 3.0 G/DL (3.4-5.0) L Globulin 3.6 g/dL Albumin/Globulin Ratio 0.8 (1.0-2.7) L Thyroid Stimulating Hormone (TSH) 2.214 uiU/mL (0.358-3.740) Free Thyroxine 0.99 NG/DL (0.76-1.46) White Blood Count 3.4 K/UL (4.8-10.8) L Red Blood Count 3.74 M/UL (4.70-6.10) L Hemoglobin 9.4 G/DL (14.2-18.0) L Hematocrit 28.9 % (42.0-52.0) L Mean Corpuscular Volume 77 FL (80-99) L Mean Corpuscular Hemoglobin 25.0 PG (27.0-31.0) L Mean Corpuscular Hemoglobin Concent 32.3 G/DL (32.0-36.0) Red Cell Distribution Width 18.6 % (11.6-14.8) H Platelet Count 114 K/UL (150-450) L Mean Platelet Volume 7.5 FL (6.5-10.1) Neutrophils (%) (Auto) % (45.0-75.0) Lymphocytes (%) (Auto) % (20.0-45.0) Monocytes (%) (Auto) % (1.0-10.0) Eosinophils (%) (Auto) % (0.0-3.0) Basophils (%) (Auto) % (0.0-2.0) Differential Total Cells Counted 100 Neutrophils % (Manual) 60 % (45-75) Lymphocytes % (Manual) 32 % (20-45) Monocytes % (Manual) 6 % (1-10) Eosinophils % (Manual) 0 % (0-3) Basophils % (Manual) 1 % (0-2) Band Neutrophils 1 % (0-8) Platelet Estimate Decreased L Platelet Morphology Normal Anisocytosis 2+ Microcytosis 1+ Height (Feet): 5 Height (Inches): 7.00 Weight (Pounds): 160 General Appearance: WD/WN, no apparent distress, alert Cardiovascular: normal rate Respiratory/Chest: normal breath sounds, no respiratory distress Abdominal Exam: normal bowel sounds, non tender, soft Extremities: normal range of motion, non-tender Rose,Eliz Geovanni N.P. Aug 23, 2017 12:32
[2017-08-23] MEDS ORDERED: Folic Acid 1 MG, Magnesium Sulfate 2,000 MG, Multivitamin - 12 Injection 10 ML in NS w/... IV ONE ×2 (14:00→21:00)
[2017-08-23] MEDS ORDERED: Morphine Sulfate 4mg/ml Inj IVP PRN (21:15)
[2017-08-23] MEDS ORDERED: Acetaminophen 650 MG SUPP RECTAL PRN ×2 (21:15)
[2017-08-23] MEDS ORDERED: LORazepam 1mg tab ORAL PRN (21:15)
[2017-08-23] MEDS ORDERED: Miralax 17gm pkt ORAL PRN (21:15)
[2017-08-23] MEDS ORDERED: Zolpidem 5mg tab ORAL PRN (21:15)
--- NOTE | 2017-08-23 23:13 | General Progress Note ---
Assessment/Plan Problem List: (1) Gastritis ICD Codes: K29.70 - Gastritis, unspecified, without bleeding SNOMED: 2747282 (2) Bile reflux (3) H/o partial antrectomy (4) Acute upper GI bleed ICD Codes: K92.2 - Gastrointestinal hemorrhage, unspecified SNOMED: 31453607 (5) Acute blood loss anemia ICD Codes: D62 - Acute posthemorrhagic anemia SNOMED: 465684020 (6) Hyponatremia ICD Codes: E87.1 - Hypo-osmolality and hyponatremia SNOMED: 56225575 (7) Hypokalemia ICD Codes: E87.6 - Hypokalemia SNOMED: 44998587 Status: stable Assessment/Plan Appreciate GI rec's s/p EGD yesterday which showed gastritis, bile reflux, h/o partial antrectomy CLD, ADAF IVFs PPI Replete lytes Pain control, nausea control, supportive care DVT ppx w/ SCDs Likely d/c tomorrow if tolerating PO D/w pt, RN, SW/CM, Gi regarding mgmt and dispo Subjective Date patient seen: Aug 23, 2017 Time patient seen: 14:00 ROS Limited/Unobtainable: No Constitutional: Reports: no symptoms HEENT: Reports: no symptoms Cardiovascular: Reports: no symptoms Respiratory: Reports: no symptoms Gastrointestinal/Abdominal: Reports: abdominal pain, nausea Genitourinary: Reports: no symptoms Neurologic/Psychiatric: Reports: no symptoms Endocrine: Reports: no symptoms Hematologic/Lymphatic: Reports: no symptoms Allergies: Coded Allergies: No Known Allergies (Unverified , 08/21/17) All Systems: reviewed and negative except above Subjective No acute o/n events s/p EGD yesterday which showed gastritis, bile reflux, h/o partial antrectomy Pt cont to c/o abd pain, nausea but improving. No emesis. Tolerating CLD Objective Last 24 Hour Vital Signs Date Time Temp Pulse Resp B/P (MAP) Pulse Ox O2 Delivery O2 Flow Rate FiO2 08/23/17 21:15 98.2 89 18 133/93 98 Room Air 98.2 08/23/17 20:38 98.1 08/23/17 20:08 98.1 08/23/17 20:00 98.1 98 18 156/95 98 Room Air 98.1 08/23/17 16:00 98.1 88 20 138/85 96 Room Air 98.1 08/23/17 12:00 97.2 80 18 144/91 99 Room Air 97.2 08/23/17 12:00 74 08/23/17 08:00 97.5 83 18 149/93 99 Room Air 08/23/17 08:00 77 08/23/17 04:00 80 08/23/17 04:00 98.2 80 20 144/95 100 Room Air 08/23/17 00:00 121 08/23/17 00:00 97.7 86 22 141/84 98 Room Air Intake and Output 08/22/17 08/23/17 19:00 07:00 Intake Total 1156 ml 874 ml Output Total 800 ml 1450 ml Balance 356 ml -576 ml IV Total 1156 ml 874 ml Output Urine Total 800 ml 1450 ml # Voids 1 Laboratory Tests 08/23/17 07:04: Reticulocyte Count 1.1, Prothrombin Time 10.2, Prothromb Time International Ratio 1.0, Activated Partial Thromboplast Time 26, Sodium Level 135L, Potassium Level 3.3L, Chloride Level 101, Carbon Dioxide Level 30, Anion Gap 4L, Blood Urea Nitrogen 1L, Creatinine 0.6, Estimat Glomerular Filtration Rate > 60, Glucose Level 134H, Calcium Level 8.4L, Magnesium Level 1.7L, Iron Level 165, Total Iron Binding Capacity 249L, Percent Iron Saturation 66H, Unsaturated Iron Binding 84L, Ferritin 72, Total Bilirubin 1.0, Aspartate Amino Transf (AST/SGOT ) 60H, Alanine Aminotransferase (ALT/SGPT) 36, Alkaline Phosphatase 82, Total Protein 6.6, Albumin 3.0L, Globulin 3.6, Albumin/Globulin Ratio 0.8L, Thyroid Stimulating Hormone (TSH) 2.214, Free Thyroxine 0.99 08/23/17 08:10: White Blood Count 3.4L, Red Blood Count 3.74L, Hemoglobin 9.4L, Hematocrit 28.9L , Mean Corpuscular Volume 77L, Mean Corpuscular Hemoglobin 25.0L, Mean Corpuscular Hemoglobin Concent 32.3, Red Cell Distribution Width 18.6H, Platelet Count 114L, Mean Platelet Volume 7.5, Neutrophils (%) (Auto) , Lymphocytes (%) (Auto) , Monocytes (%) (Auto) , Eosinophils (%) (Auto) , Basophils (%) (Auto) , Differential Total Cells Counted 100, Neutrophils % ( Manual) 60, Lymphocytes % (Manual) 32, Monocytes % (Manual) 6, Eosinophils % ( Manual) 0, Basophils % (Manual) 1, Band Neutrophils 1, Platelet Estimate DecreasedL, Platelet Morphology Normal, Anisocytosis 2+, Microcytosis 1+ Height (Feet): 5 Height (Inches): 7.00 Weight (Pounds): 160 Objective General: alert, cooperative, no distress, appears stated age Head: normocephalic, without obvious abnormality, atraumatic Eyes: conjunctivae/corneas clear. PERRL, EOM's intact Throat: lips, mucosa, and tongue normal. MMM Neck: supple, symmetrical, trachea midline, and no JVD Lungs: clear to auscultation bilaterally Heart: regular rate and rhythm, S1, S2 normal, no murmur, click, rub or gallop Abdomen: soft, +TTP of diffusely don of upper abd, non-distended, bowel sounds normal; no masses or organomegaly Extremities: extremities normal, atraumatic, no cyanosis or edema Pulses: 2+ and symmetric Skin: skin color, texture, turgor normal; no rashes or lesions Neurologic: grossly normal, no focal deficits Jana Dickerson M.D. Aug 23, 2017 23:13
[2017-08-24 00:32] VITALS: BP 133/93
[2017-08-24 04:42] VITALS: BP 150/94
[2017-08-24 09:00] VITALS: BP 146/84
[2017-08-24] MEDS ORDERED: Thiamine 100mg tab ORAL SCH ×2 (09:00)
[2017-08-24 09:35] LABS: BASOPHILS % (AUTO) 0.8 % (0.0-2.0); EOSINOPHILS % (AUTO) 0.5 % (0.0-3.0); HEMATOCRIT 30.4 % (42.0-52.0); HEMOGLOBIN 9.7 G/DL (14.2-18.0); LYMPHOCYTES % (AUTO) 14.3 % (20.0-45.0); MEAN CORPUSCULAR VOLUME 77 FL (80-99); MONOCYTES % (AUTO) 4.4 % (1.0-10.0); PLATELET COUNT 114 K/UL (150-450); RED BLOOD COUNT 3.92 M/UL (4.70-6.10); RED CELL DISTRIBUTION WIDTH 18.6 % (11.6-14.8); WHITE BLOOD COUNT 5.8 K/UL (4.8-10.8)
[2017-08-24 09:39] LABS: ANION GAP 7 mmol/L (5-15); BLOOD UREA NITROGEN 2 mg/dL (7-18); CALCIUM 8.7 MG/DL (8.5-10.1); CARBON DIOXIDE 28 MMOL/L (21-32); CHLORIDE 101 MMOL/L (98-107); CREATININE 0.7 MG/DL (0.55-1.30); POTASSIUM 3.4 MMOL/L (3.5-5.1); SODIUM 136 MMOL/L (136-145)
[2017-08-24 12:58] VITALS: BP 140/92
[2017-08-24] MEDS ORDERED: FOLIC ACID1 MG ORAL (13:10)
[2017-08-24] MEDS ORDERED: THIAMINE HCL100 MG ORAL (13:10)
[2017-08-24] MEDS ORDERED: PROTONIX40 MG ORAL (13:10)
[2017-08-24] MEDS ORDERED: MULTIVITAMINS1 EAC8 ORAL (13:10)
--- NOTE | 2017-08-24 13:32 | GI Progress Note ---
Assessment/Plan Problems: (1) Upper GI bleed ICD Codes: K92.2 - Gastrointestinal hemorrhage, unspecified SNOMED: 33481125 (2) Abdominal pain ICD Codes: R10.9 - Unspecified abdominal pain SNOMED: 09917838 Qualifiers: Qualified Codes: R10.84 - Generalized abdominal pain (3) Hematemesis ICD Codes: K92.0 - Hematemesis SNOMED: 7842165 Qualifiers: Qualified Codes: K92.0 - Hematemesis (4) ETOH abuse ICD Codes: F10.10 - Alcohol abuse, uncomplicated SNOMED: 52676624 Status: stable Status Narrative Discussed with Dr. Cross. Assessment/Plan s/p EGD SUMMARY OF FINDINGS: 1. Gastritis and bile reflux. 2. History of partial antrectomy. 3. Bx negative for H. Pylori RECOMMENDATIONS: okay for DC per GI standpoint Resume diet. Monitor labs. Follow biopsy results. Transfuse as needed. Monitor for alcohol withdrawal. PT evaluation ppi fu labs, B12/folate Subjective Subjective feels better abdominal pain still present Objective Last 24 Hour Vital Signs Date Time Temp Pulse Resp B/P (MAP) Pulse Ox O2 Delivery O2 Flow Rate FiO2 08/24/17 12:58 98.3 106 21 140/92 98 Room Air 98.3 08/24/17 09:00 97.8 105 21 146/84 98 Room Air 97.8 08/24/17 04:42 98.3 89 20 150/94 99 98.3 08/24/17 00:32 98.1 97 20 133/93 100 98.1 08/23/17 21:15 98.2 89 18 133/93 98 Room Air 98.2 08/23/17 20:38 98.1 08/23/17 20:08 98.1 08/23/17 20:00 98.1 98 18 156/95 98 Room Air 98.1 08/23/17 16:00 98.1 88 20 138/85 96 Room Air 98.1 Intake and Output 08/23/17 08/24/17 19:00 07:00 Intake Total 365 ml 830 ml Output Total 1350 ml 700 ml Balance -985 ml 130 ml Intake Oral 240 ml 580 ml IV Total 125 ml 250 ml Output Urine Total 1350 ml 700 ml # Voids 3 Laboratory Tests Test 08/24/17 08:45 White Blood Count 5.8 K/UL (4.8-10.8) # Red Blood Count 3.92 M/UL (4.70-6.10) L Hemoglobin 9.7 G/DL (14.2-18.0) L Hematocrit 30.4 % (42.0-52.0) L Mean Corpuscular Volume 77 FL (80-99) L Mean Corpuscular Hemoglobin 24.6 PG (27.0-31.0) L Mean Corpuscular Hemoglobin Concent 31.8 G/DL (32.0-36.0) L Red Cell Distribution Width 18.6 % (11.6-14.8) H Platelet Count 114 K/UL (150-450) L Mean Platelet Volume 8.3 FL (6.5-10.1) Neutrophils (%) (Auto) 80.0 % (45.0-75.0) H Lymphocytes (%) (Auto) 14.3 % (20.0-45.0) L Monocytes (%) (Auto) 4.4 % (1.0-10.0) Eosinophils (%) (Auto) 0.5 % (0.0-3.0) Basophils (%) (Auto) 0.8 % (0.0-2.0) Sodium Level 136 MMOL/L (136-145) Potassium Level 3.4 MMOL/L (3.5-5.1) L Chloride Level 101 MMOL/L (98-107) Carbon Dioxide Level 28 MMOL/L (21-32) Anion Gap 7 mmol/L (5-15) Blood Urea Nitrogen 2 mg/dL (7-18) L Creatinine 0.7 MG/DL (0.55-1.30) Estimat Glomerular Filtration Rate > 60 mL/min (>60) Glucose Level 131 MG/DL (74-106) H Calcium Level 8.7 MG/DL (8.5-10.1) Height (Feet): 5 Height (Inches): 7.00 Weight (Pounds): 160 General Appearance: WD/WN, no apparent distress, alert Cardiovascular: normal rate Respiratory/Chest: normal breath sounds, no respiratory distress Abdominal Exam: normal bowel sounds, non tender, soft Extremities: normal range of motion, non-tender Eliz Rose N.P. Aug 24, 2017 13:32
--- NOTE | 2017-08-25 07:45 | Consultation ---
DATE OF CONSULTATION: 08/24/2017 NOTE: POOR AUDIO HEMATOLOGY/ONCOLOGY CONSULTATION CONSULTING PHYSICIAN: Stanford Cortez M.D. REQUESTING PHYSICIAN: Sofiya Bennett M.D. REASON FOR CONSULTATION: Evaluation of pancytopenia. IDENTIFYING DATA: Dear Dr. Bennett, The patient is a pleasant 37-year-old male with a past medical history, which is significant for disease, end-stage cirrhosis, recent alcohol binging, at this time presents with history of noncompliance, history. abdominal pain, any abdominal surgery, at this time presents to the hospital alert, oriented, upper GI bleed. He has been seen by GI Service. He has had a history of alcohol abuse one daily, has also tobacco use and occasional drug use as well, due to his underlying stress. He had a similar episode last year. He actually had an EGD completed by GI Service, status post EGD showed gastritis, biopsy negative for H. pylori. Hematology Service was consulted given history of anemia and pancytopenia. PAST MEDICAL HISTORY: Alcohol abuse, folic acid deficiency, cirrhosis of the liver, and pancytopenia. PAST SURGICAL HISTORY: None reported. FAMILY HISTORY: Noncontributory. SOCIAL HISTORY: Alcohol abuse and occasional drug use. REVIEW OF SYSTEMS: CONSTITUTIONAL: No fevers, chills, or night sweats. SKIN: No rashes, bumps, or itching. HEENT: No headache, hearing or vision changes. BREASTS: No lumps, pain, or discharge. PULMONARY: No cough. He has some mild shortness of breath as noted. GENITOURINARY: No dysuria, frequency, or urgency. MUSCULOSKELETAL: No joint swelling, muscle pain, or trauma. PHYSICAL EXAMINATION: GENERAL: No distress. VITAL SIGNS: Reviewed. PULMONARY: Decreased breath sounds. CARDIOVASCULAR: Regular rate. No S3 or S4. ABDOMEN: Soft, right side is swollen, slightly tender. EXTREMITIES: There is 1+ to 2+ edema. LABORATORY DATA: WBC is 12.8, hemoglobin 9.7, , MCV of 77, and platelet count of 114,000. INR 1. BUN of 2 and creatinine 0.7. Anemia workup, ferritin 72, TIBC . AST and ALT at 60 and 36. ASSESSMENT AND RECOMMENDATIONS: 1. Pancytopenia, secondary to alcohol abuse, myelosuppression, likely cirrhosis. Continue to closely monitor in the outpatient setting. In the future, if pancytopenia worsens, may consider a bone marrow biopsy. At this time, continue to closely monitor. 2. Anemia due to underlying of chronic disease as shown by anemia workup. 3. Anemia due to underlying gastrointestinal bleed due to gastritis. Helicobacter pylori biopsy is negative. 4. Hematemesis. 5. Alcohol abuse. 6. Abdominal pain. Continue to closely monitor. 7. The patient is stable for discharge. I appreciate the consultation. Stanford Cortez M.D. DR: ANGELICA JOB#: [id number] CC:
--- NOTE | 2017-08-25 16:26 | Discharge Summary ---
Discharge Summary Hospital Course Date of Admission Aug 21, 2017 at 23:17 Date of Discharge Aug 24, 2017 at 15:01 Admitting Diagnosis upper GI bleed KEITH Arreguin is a 37 year old male who was admitted on Aug 21, 2017 at 23:17 for Upper Gi Bleed Hospital Course [id number] Discharge Discharge Disposition Patient was discharged to Home (01) Discharge Diagnoses: Lizbeth Valles NP Aug 25, 2017 16:26
--- NOTE | 2017-08-26 02:31 | Discharge Summary 2 SIG ---
DATE OF ADMISSION: 08/21/2017 DATE OF DISCHARGE: 08/24/2017 CONSULTANTS: 1. Vivek Cross M.D. 2. Stanford Cortez M.D. BRIEF HOSPITAL COURSE: The patient is a 37-year-old male, who was brought in by EMS due to abdominal pain and vomiting. The patient had a recent ETOH binge and had been noncompliant. History of present illness was limited as the patient was not providing history. On evaluation at ED, hemoglobin was 11 and hematocrit was 35. INR was normal. He was given Protonix and was admitted for possible gastrointestinal bleed. He was seen by Dr. Cross and underwent endoscopy on 08/22/2017, findings showed gastritis and bile reflux. There was history of partial antrectomy seen. He was then resumed diet and was given B12 and folate. He was given banana bag. Pathology result showed chronic active gastritis with reactive changes, negative for H. pylori. The patient had pancytopenia, possibly secondary to alcohol abuse. Hemoglobin levels were stable. He was given potassium supplements. He was eventually cleared for discharge home. FINAL DIAGNOSES: 1. Acute gastrointestinal bleed s/p EGD. 2. Abdominal pain. 3. Ethanol abuse. 4. Hypokalemia. 5. Pancytopenia. 6. Anemia due to chronic disease. 7. Gastritis. DISPOSITION: The patient was discharged home. DISCHARGE MEDICATIONS: Refer to medication list. DISCHARGE INSTRUCTIONS: Follow up with primary care doctor. Jana Dickerson M.D. I have been assigned to dictate discharge summary on this account and I was not involved in the patient's management. Lizbeth Valles N.P. DR: Nikky JOB#: [id number] CC: ROBERTO
== END 2017-08-24 15:01 | disposition home or self-care (01) | DRG 241 ==
LOC: EDBD 22:08 → EMR 22:26 → 2E 23:17 → EDBEDREQ 08-22 00:10 → 3E 08-23 21:39
PROC: 0DD68ZX Extraction of Stomach, Via Natural or Artificial Opening Endoscopic, Diagnostic (ICD-10-PCS; principal; 2017-08-22 13:00)
DX: K29.51 Unspecified chronic gastritis with bleeding (principal); D61.818 Other pancytopenia; K74.60 Unspecified cirrhosis of liver; F10.10 Alcohol abuse, uncomplicated; E87.6 Hypokalemia; Z72.0 Tobacco use; K21.9 Gastro-esophageal reflux disease without esophagitis
CPT/HCPCS: 36415; 80048; 80053; 81003; 82607; 82728; 82746; 83540; 83550; 83690; 83735; 84439; 84443; 85007; 85025; 85044; 85610; 85730; 86850; 86900; 86901; 93005; 94003; 94150; 99285; J2405; J8499